=== PATIENT | male | born 1945 | race Caucasian/White ===

== ENCOUNTER → 2020-06-13 | Outpatient (CLI) | payer OTHER, BC | LOC: LAB 12:24 | PROVIDERS: ATTEND Ophthalmology | DX: Z01.812 Encounter for preprocedural laboratory examination (principal); Z20.822 Contact with and (suspected) exposure to COVID-19 ==

== ENCOUNTER → 2020-06-19 | Day surgery (SDC) | payer OTHER, BC ==
[~2020-06-19] VITALS: Ht 177.8 cm; Wt 109.8 kg
[~2020-06-19] MED LIST: ADULT LOW DOSE81 MG PO; ALLOPURINOL 30300 M1 PO; ALOGLIPTIN25 MG PO; AMLODIPINE BESY10 MG PO; ARTIFICIAL TEAR15 M2 EA. EYE; CARVEDILOL25 MG PO; GLUCOPHAGE1000 MG PO; JARDIANCE25 MG PO; PRINIVIL40 MG PO; ROSUVASTATIN CA10 MG PO; TYLENOL EXTRA500 MG PO; VITAMIN C1000 MG PO; VITAMIN D310 MC2 PO
[2020-06-19 07:46] VITALS: BP 156/89
--- NOTE | 2020-06-23 06:05 | O ---
[facility] [place] [address] OPERATIVE REPORT Name: ADIN TSAI Room #: REG [facility]..#: [id number] Admission: 06/19/20 Attend Phys: Shreyas Redd MD Discharge: Date of : 41 Report #: [id number] THIS REPORT FOR: cc: Hardeep Tello MD, Avan D. MD White, William L. 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 PROCEDURE: Left transconjunctival orbitotomy. SURGEON: Shreyas Redd MD TARE MAN: None. ANESTHESIA: General. COMPLICATIONS: None. INDICATIONS FOR SURGERY: This pleasant 74-year-old gentleman presents with a yellow vides superotemporal left orbital mass inducing a secondary mechanical ectropion of his upper lid, which draws his lid away from his eyeball, so that his eyes stay chronically irritated and watery. He presents today for a transconjunctival orbitotomy. The lesion was presumed to be benign, but will be sent for pathology. Informed consent was obtained to include but not limited to the potential risk for loss of vision, bleeding, infection, failure to improve the problem, the potential need for further surgery or treatment. DESCRIPTION OF PROCEDURE: The patient was taken to the operating room where general anesthesia was administered. The left orbit was then anesthetized transconjunctivally and transcutaneously laterally. The patient was subsequently prepped and draped in the usual sterile fashion. A moistened sponge was placed over the right eye while the left eye was approached. The left upper lid was retracted revealing the superotemporal quadrant. The conjunctiva was grasped and elevated as a transconjunctival incision was then made with a Warren scissor in a radial manner. The dissection was carried down onto Tenon's capsule, which was similarly grasped and elevated through that [facility] [address] [place] [address] OPERATIVE REPORT Name: TSAICOLEY Room #: REG [facility] M.R.#: [id number] Admission: 06/19/20 Attend Phys: Shreyas Redd MD Discharge: Date of : 41 Report #: [id number] same incision. Tenon's capsule was then opened, which revealed the underlying mass directly over the lateral rectus muscle. The lesion was then drawn through that conjunctival and Tenon's incision and gently dissected with the cotton-tipped applicators back to its base. The base was injected with the same anesthetic mixture used at the beginning of the case, namely Xylocaine with epinephrine mixed with Marcaine and Wydase. The mass was then clamped at its base at the conjunctival incision with Smitha clamp. The mass was then amputated with a high temp cautery. The stump was grasped with a Webber clamp was released. Minimal oozing ensued. The lateral rectus muscle underlying the incision was not traumatized. Its capsule was not violated. The conjunctiva was then closed with interrupted buried 6-0 plain gut sutures. The wounds were then cleaned and dressed with erythromycin ophthalmic ointment and the patient subsequently transported to the recovery area, having tolerated the procedures well with no anesthetic or operative complications being noted. MD DIONISIO Encarnacion/KELLEY/CHERISE <ELECTRONICALLY SIGNED> By: Shreyas Redd MD 06/23/20 0605 [id number] Shreyas Redd MD /nt
--- NOTE | 2020-06-23 12:06 | PATH ---
[facility] [address] [place] [address] PATHOLOGY RPT PROCEDURE Name: TYSON NAIDU Room #: REG [facility] M.R.#: [id number] Admission: 06/19/20 Date of : 41 Discharge: Report #: [id number] Path Case #: [id number] [facility] Accession Number: [id number] . 01 Material submitted: . orbit - LEFT ORBITAL MASS PRESUMED LIPODERMOID. Modifiers: left . 01 Clinical history: . ORBITOTOMY . 02 Diagnosis: Left orbital mass presumed lipodermoid, orbitotomy; - Mature adipose tissue compatible with lipoma. . (IUV:mml; 06/20/2020) QL 06/20/2020 1726 Local . 02 Electronically signed: . Kristina Petty MD, Pathologist NPI- [id number] . 01 Gross description: . Received in formalin labeled "Naidu, Tyson and left orbital mass presumed lipodermoid". Received is a lobulated yellow adipose tissue measuring 1.5 x 1.0 x 0.5 cm. Specimen is inked black. Sectioning reveals glistening yellow adipose cut surfaces with no other grossly apparent lesions. Specimen is entirely submitted in cassette A1. ([facility]; 06/19/2020) [facility] 06/20/2020 1724 Local . 02 Pathologist provided ICD-10: D17.39 . 02 CPT . 175305 Specimen Comment: A courtesy copy of this report has been sent to [phone] Specimen Comment: [phone] Specimen Comment: Report sent to / DR ANTHONY Performed at: [address], [place] [id number] MD Mike Toscano MD Phone: [phone] Performed at: [address] [id number] MD Kristina Petty MD Phone: [phone]
== END | disposition home or self-care (01) ==
LOC: OR 06:09
PROVIDERS: ATTEND Ophthalmology
DX: D17.39 Benign lipomatous neoplasm of skin and subcutaneous tissue of other sites (principal); H16.202 Unspecified keratoconjunctivitis, left eye; I11.0 Hypertensive heart disease with heart failure; I50.9 Heart failure, unspecified; E11.9 Type 2 diabetes mellitus without complications; K21.9 Gastro-esophageal reflux disease without esophagitis; M10.9 Gout, unspecified; F17.200 Nicotine dependence, unspecified, uncomplicated; E66.9 Obesity, unspecified; Z98.890 Other specified postprocedural states; Z79.899 Other long term (current) drug therapy; Z86.73 Personal history of transient ischemic attack (TIA), and cerebral infarction without residual deficits; Z86.718 Personal history of other venous thrombosis and embolism; Z68.34 Body mass index [BMI] 34.0-34.9, adult; Z90.49 Acquired absence of other specified parts of digestive tract
CPT/HCPCS: 50010; 50101; 50386; 50398; 51636; 56531; 62110; 62900; 70005